=== PATIENT | female | born 2000 | race Two or more races ===

== ENCOUNTER 2021-12-02 21:19 | Emergency (ER) | payer SELFPAY ==
[~2021-12-02] VITALS: Ht 167.6 cm; Wt 49.9 kg
[2021-12-02 22:41] VITALS: BP 110/70
[2021-12-02] MEDS ORDERED: IBUPROFEN 600 MG TABLET ONE (22:54)
[2021-12-02] MEDS ORDERED: CEPHALEXIN MONOHYDRATE 500 MG CAPSULE PO ONE ×2 (22:54→23:00)
[2021-12-02] MEDS ORDERED: SULFAMETH/TRIMETH 800/160 MG 1 UDTAB TABLET ONE (22:55)
[2021-12-02] MEDS ORDERED: IBUPROFEN 600 MG TABLET PO ONE (23:00)
[2021-12-02] MEDS ORDERED: SULFAMETH/TRIMETH 800/160 MG 1 UDTAB TABLET PO ONE (23:00)
[2021-12-02] MEDS ORDERED: SULF1TAB48 PO (23:01)
[2021-12-02] MEDS ORDERED: CEPH500C2 PO (23:01)
[2021-12-02] MEDS ORDERED: IBUP-1955 PO (23:01)
--- NOTE | 2021-12-02 23:11 | NUR ---
Patient discharged to home in stable condition. Written and verbal after care instructions given. Patient verbalizes understanding of instruction. Pt ambulatory with a steady gait
== END 2021-12-02 23:13 | disposition home or self-care (01) ==
LOC: ER 21:28
DX: M71.121 Other infective bursitis, right elbow (principal)

== ENCOUNTER 2021-12-05 02:09 | Inpatient (IN) | payer MEDICAID ==
[~2021-12-05] VITALS: Ht 162.6 cm; Wt 49.9 kg
[~2021-12-05 02:09] MED LIST: CEPH500C2 PO; IBUP-1955 PO; SULF1TAB48 PO
--- NOTE | 2021-12-05 02:20 | NUR ---
TO ER BED 2. BIBSELF C/O R ELBOW PAIN RADIATING TO FOREARM. PT STATES SHE NOTICED A PIMPLE 8 DAYS AGO AND PROGRESSED INTO SWELLING. WARM TO THE TOUCH, REDNESS, AND DISCHARGE NOTED. PT DENIES ANY TRAUMA. PT WAS SEEN A FEW DAYS AGO AND ANTIBIOTICS WERE GIVEN. PT CHANGED INTO GOWN. CONNECTED TO MONITOR. AWAITING MD CHATMAN
--- NOTE | 2021-12-05 02:45 | NUR ---
COVID ANTIGEN SWAB COLLECTED AND SENT TO LAB
[2021-12-05] MEDS ORDERED: VANCOMYCIN 1 GM VIAL ONE (02:46)
[2021-12-05] MEDS ORDERED: MORPHINE SULFATE INJ 4 MG/ML DISP.SYRIN ONE (02:46)
[2021-12-05] MEDS ORDERED: ONDANSETRON HCL/PF 4 MG/2 ML VIAL ONE (02:46)
[2021-12-05] MEDS ORDERED: ONDANSETRON HCL/PF 4 MG/2 ML VIAL IVP ONE (03:00)
[2021-12-05] MEDS ORDERED: IV NS 0.9% 500 ML BAG IV ONE (03:00)
[2021-12-05] MEDS ORDERED: MORPHINE SULFATE INJ 2 MG/ML DISP.SYRIN IV ONE (03:00)
[2021-12-05] MEDS ORDERED: VANCOMYCIN 1 GM in IV D5W 250 ML IV ONE (03:00)
[2021-12-05 03:03] LABS: BASOPHILS # (AUTO) 0.1 K/uL (0.0-0.2); BASOPHILS % (AUTO) 0.7 % (0.0-2.0); EOSINOPHILS % (AUTO) 2.7 % (0.0-6.0); HEMATOCRIT 35 % (33-45); HEMOGLOBIN 11.7 g/dL (11.5-14.8); LYMPHOCYTES # (AUTO) 3.1 K/uL (0.8-4.8); LYMPHOCYTES % (AUTO) 35.6 % (20.0-44.0); MEAN CORPUSCULAR HGB CONC 34 g/dl (31.0-36.0); MEAN CORPUSCULAR VOLUME 88 fL (82-100); MONOCYTES # (AUTO) 0.5 K/uL (0.1-1.30); MONOCYTES % (AUTO) 5.3 % (2.0-12.0); NEUTROPHILS # (AUTO) 4.9 K/uL (1.8-8.9); NEUTROPHILS % (AUTO) 55.7 % (43.0-81.0); PLATELET COUNT (AUTO) 316 K/uL (150-450); RED BLOOD CELL COUNT(AUTO) 3.97 MIL/uL (4.0-5.2); WHITE BLOOD COUNT (AUTO) 8.8 K/uL (4.3-11.0)
--- NOTE | 2021-12-05 03:12 | NUR ---
IV LINE ESTABLISHED, LAC 20G. BLOOD COLLECTED AND SENT TO LAB
--- NOTE | 2021-12-05 03:28 | NUR ---
LACTIC ACID= 2.0
[2021-12-05 03:31] LABS: CALCIUM, SERUM 8.2 mg/dL (8.5-10.1); CARBON DIOXIDE 25 mmol/L (21-32); CHLORIDE 105 mmol/L (98-107); GLUCOSE 92 mg/dL (74-106); POTASSIUM 3.6 mmol/L (3.5-5.1); SODIUM SERUM 139 mmol/L (136-145); UREA NITROGEN, BLOOD 14 mg/dL (7-18)
[2021-12-05 03:36] LABS: ALANINE AMINOTRANSFERASE 21 U/L (12-78); ALBUMIN 3.7 g/dL (3.4-5.0); ALKALINE PHOSPHATASE 70 U/L (46-116); ASPARTATE AMINOTRANSFERASE 14 U/L (15-37); BILIRUBIN,DIRECT 0.1 mg/dL (0.0-0.2); BILIRUBIN,TOTAL 0.2 mg/dL (0.2-1.0); TOTAL PROTEIN, SERUM 7.7 g/dL (6.4-8.2)
--- NOTE | 2021-12-05 04:28 | NUR ---
PT AMBULATED TO BATHROOM, STEADY GAIT NOTED
[2021-12-05] MEDS ORDERED: Z GUARD REMEDY 4 OZ OINT TP PRN (06:00)
[2021-12-05] MEDS ORDERED: MAGNESIUM HYDROXIDE 30 ML UDC PO PRN (06:00)
[2021-12-05] MEDS ORDERED: ZOLPIDEM TARTRATE 5 MG TABLET PO PRN (06:00)
[2021-12-05] MEDS ORDERED: MORPHINE SULFATE INJ 2 MG/ML DISP.SYRIN IV PRN (06:00)
[2021-12-05] MEDS ORDERED: MAG HYDROX/AL HYDROX/SIMETH 30 ML UDC PO PRN (06:00)
[2021-12-05] MEDS ORDERED: ONDANSETRON HCL/PF 4 MG/2 ML VIAL IVP PRN (06:00)
[2021-12-05] MEDS ORDERED: ACETAMINOPHEN 325 MG TABLET PO PRN (06:00)
[2021-12-05] MEDS ORDERED: HYDROCODONE/APAP 5/325MG TABLET PO PRN (06:00)
[2021-12-05] MEDS ORDERED: PANTOPRAZOLE 40 MG TABLET.DR PO SCH (07:30)
--- NOTE | 2021-12-05 08:42 | NUR ---
BED 310-2
--- NOTE | 2021-12-05 08:45 | NUR ---
REPORT GIVEN TO ELENA POLLOCK OF [facility]
[2021-12-05 09:45] VITALS: BP 108/62
--- NOTE | 2021-12-05 09:45 | NUR ---
PACKAGING SUPERVISOR NOTE RECEIVED PATIENT FROM ED, REPORT RECEIVED FROM MARIS ESTES. A/O X 4 YAKUT SPEAKING ONLY. PT WITH STABLE VITALS. NO S/SX OF ACUTE DISTRESS. NO SOB. BREATHING IS EVEN AND UNLABORED. NO C/O PAIN AT THIS TIME. PT WITH LAC#20 PATENT AND INTACT. ORIENTED PT TO ROOM, UNIT, STAFF AND CALL LIGHT. SAFETY MEASURES IN PLACE WITH BED LOCKED AND LOW POSITION. WILL CONTINUE TO MONITOR PATIENT THROUGHOUT SHIFT.
--- NOTE | 2021-12-05 10:00 | NUR ---
RN NOTE WOUND CX OBTAINED FROM RIGHT ELBOW PER DR. RENNER.
[2021-12-05] MEDS ORDERED: VANCOMYCIN 0.75 GM in IV D5W 250 ML IV SCH (13:00)
[2021-12-05] MEDS ORDERED: LACT1CAP69 PO (15:47)
[2021-12-05] MEDS ORDERED: CLIN300C12 PO (15:47)
[2021-12-05 16:00] VITALS: BP 103/51
--- NOTE | 2021-12-05 18:19 | NUR ---
MS DISCHARGE NOTE PT DISCHARGED WITH STABLE VITALS. NO S/SX OF ACUTE DISTRESS NOTED. NO SOB. DC INSTRUCTIONS REVIEWED WITH PATIENT AND SIGNED. PT AWARE TO HOSE COUPLING JOINER RX AT PHARMACY AND F/U WITH PCP IN 1 WEE. ID BAND REMOVED. IV ACCESS REMOVED. I ACCOMPANIED PT OUT UNIT VIA WHEELCHAIR. OBSERVED PT GET INTO PRIVATE CAR.
== END 2021-12-05 18:15 | disposition home or self-care (01) | DRG 383 ==
LOC: ER 02:16 → TRANSITION 06:24 → TELE 08:42 → MED 11:46
PROVIDERS: ADMIT Family Medicine; ATTEND Family Medicine
DX: L03.113 Cellulitis of right upper limb (principal); Z20.822 Contact with and (suspected) exposure to COVID-19
CPT/HCPCS: 36415; 73080-TC; 80048-TC; 80076-TC; 83605-TC; 85025-TC; 87040-TC; 87070-TC; C9803; G0378; J2270; J2405; J3370; J7040; J7050; J7060